=== PATIENT | male | born 1980 | race Caucasian/White ===

== ENCOUNTER 2021-03-25 06:31 | Emergency (ER) | payer OTHER ==
[2021-03-25] MEDS ORDERED: KETOROLAC TROMETHAMINE 15 MG/ML VIAL IVPUSH ONE (06:37)
[2021-03-25] MEDS ORDERED: ONDANSETRON 4 MG/2 ML VIAL IVPUSH ONE (06:42)
[2021-03-25] MEDS ORDERED: KETOROLAC TROMETHAMINE 15 MG/ML VIAL ONE (06:42)
[2021-03-25 06:44] VITALS: BP 152/91; PULSE 50; BMI 27.1
[2021-03-25] MEDS ORDERED: morphine SULFATE 4 MG/ML VIAL IVPUSH ONE (06:47)
[2021-03-25] MEDS ORDERED: morphine SULFATE 4 MG/ML VIAL ONE (06:48)
[2021-03-25] MEDS ORDERED: ONDANSETRON 4 MG/2 ML VIAL ONE (06:49)
[2021-03-25 07:06] VITALS: TEMP 98
[2021-03-25 07:14] LABS: BASO % 0.8 % (0-2.0); EOS % 0.8 % (0-4.5); HEMATOCRIT 44.7 % (35.4-49); HEMOGLOBIN 15.8 GM/dL (11.7-16.9); LYMPH % 9.2 % (8-40); MCH 31.4 pg (25.7-33.7); MCHC 35.3 g/dl (32.0-35.9); MEAN CELL VOLUME 89.1 fl (80-96); MEAN PLT VOLUME 9.1 fl (7.5-11.1); MONO % 7.9 % (3.8-10.2); NEUT % 81.3 % (42.8-82.8); PLATELET COUNT 291 10^3/uL (134-434); RBC 5.02 M/mm3 (4.00-5.60); RDW 13.9 % (11.9-15.9); WHITE BLOOD COUNT 16.6 K/mm3 (4.0-10.0)
[2021-03-25 07:19] LABS: INR 1.06 (0.83-1.09); PROTHROMBIN TIME (PATIENT) 12.4 SEC (9.7-13.0)
[2021-03-25 07:21] LABS: ACTIVATED PTT 40.9 SECONDS (25.2-36.5)
[2021-03-25 07:31] LABS: CALCIUM 9.3 mg/dL (8.5-10.1)
[2021-03-25 07:32] LABS: ALBUMIN 3.7 g/dl (3.4-5.0); BLOOD UREA NITROGEN 16.3 mg/dL (7-18)
[2021-03-25 07:35] LABS: CREATININE 1.1 mg/dL (0.55-1.3)
[2021-03-25 07:36] LABS: BILIRUBIN,TOTAL 0.6 mg/dL (0.2-1); TOT PROT 7.6 g/dl (6.4-8.2)
[2021-03-25] MEDS ORDERED: SODIUM CHLORIDE 0.9% 1000 ML INFUS.BAG IV ONE (07:55)
[2021-03-25 09:16] LABS: URINE APPEARANCE CLOUDY; URINE BILIRUBIN NEGATIVE (NEGATIVE); URINE COLOR YELLOW; URINE GLUCOSE (UA) NEGATIVE (NEGATIVE); URINE KETONE NEGATIVE (NEGATIVE)
[2021-03-25 09:17] LABS: PH,URINE 8.5 (5.0-8.0); URINE LEUK ESTERASE NEGATIVE (NEGATIVE); URINE NITRITE NEGATIVE (NEGATIVE); URINE PROTEIN NEGATIVE (NEGATIVE)
[2021-03-25 09:41] LABS: URINE RBC MANY /hpf (0-4)
[2021-03-25 09:42] LABS: EPI CELLS RARE /HPF
== END 2021-03-25 08:15 | disposition left against medical advice (07) ==
LOC: JER 06:31
PROC: 3E0333Z Introduction of Anti-inflammatory into Peripheral Vein, Percutaneous Approach (ICD-10-PCS; principal; 2021-03-25)
PROC: 3E033GC Introduction of Other Therapeutic Substance into Peripheral Vein, Percutaneous Approach (ICD-10-PCS; 2021-03-25)
PROC: 3E033GC Introduction of Other Therapeutic Substance into Peripheral Vein, Percutaneous Approach (ICD-10-PCS; 2021-03-25)
DX: N50.819 Testicular pain, unspecified (principal)
CPT/HCPCS: 36415; 71045-TC-FY; 80053; 81003; 85025; 85610; 85730; 87086; 99285-25

== ENCOUNTER 2024-10-16 04:37 | Emergency (ER) | payer OTHER ==
[2024-10-16 04:44] VITALS: BP 135/85; PULSE 75; RESP 18; TEMP 97.7; BMI 26.4
[2024-10-16] MEDS ORDERED: BACITRACIN 0.9 GM PACKET ONE (05:28)
[2024-10-16] MEDS ORDERED: CLINDAMYCIN HCL 150 MG CAPSULE (FP) PO ONE (05:30)
[2024-10-16] MEDS: BACITRACIN 0.9 GM PACKET TP ONE (05:38)
== END 2024-10-16 06:10 | disposition home or self-care (01) ==
LOC: JER 04:37
DX: S61.216A Laceration without foreign body of right little finger without damage to nail, initial encounter (principal); L08.9 Local infection of the skin and subcutaneous tissue, unspecified; W22.8XXA Striking against or struck by other objects, initial encounter; Y99.0 Civilian activity done for income or pay
CPT/HCPCS: 99283-25